=== PATIENT | male | born 1965 | race Caucasian/White ===

== ENCOUNTER 2017-12-28 16:47 | Emergency (ER) | payer OTHER ==
[~2017-12-28] VITALS: Ht 177.8 cm; Wt 104.8 kg
[2017-12-28 18:09] VITALS: BP 184/107
[2017-12-28] MEDS: IBUPROFEN 600 MG TABLET. PO ONE (18:15)
--- NOTE | 2017-12-28 19:23 | PHYS DOC ---
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 Patient reports event occurred at work today at approximately 12 PM and he went to [employer] for Work comp. but sent to ER for eval. patient reports he is having right shoulder and right knee pain. Patient reports he has been able to perform range of motion of motion and tenderness is in the front part of his shoulder. Patient reports he has small abrasion to right knee but has been able to walk unassisted with steady gait. Patient reports he took Tylenol approximately 4 hours ago with minimal relief in pain. Patient denies striking his head or having any head, neck, or back pain. Patient denies loss of consciousness. Patient denies swelling, numbness or tingling, bruising, or obvious deformity. Patient denies any incontinence of urine or bowel. Review of Systems Review of Systems Constitutional: Denies lethargy/fatigue Eyes: Denies change in visual acuity or eye pain [] HENT: Denies head pain Respiratory: Denies shortness of breath [] Cardiovascular: Denies CP/palpitations GI: Denies abdominal pain, nausea, vomiting : Denies dysuria or hematuria. Denies incontinence Musculoskeletal: Denies back/neck pain. Reports rt anterior shoulder and rt knee pain. Integument: Reports abrasion rt knee. Denies swelling/bruising/deformity Neurologic: Denies headache, focal weakness or sensory changes. Denies dizziness /lightheadedness All other systems were reviewed and found to be within normal limits, except as documented in this note. Current Medications Current Medications Current Medications Medications (Trade) Dose Ordered Sig/Cass Start Time Stop Time Status Last Admin Dose Admin Ibuprofen (Motrin) 600 mg 1X ONCE 12/28/17 18:15 12/28/17 18:16 DC 12/28/17 18:15 600 MG Allergies Allergies Allergies Coded Allergies Type Severity Reaction Last Updated Verified Penicillins Allergy Severe swelling 12/28/17 Yes Physical Exam Physical Exam Constitutional: Well developed, well nourished, no acute distress, non-toxic appearance. [] HENT: Normocephalic, atraumatic, bilateral ears normal, oropharynx moist, nose normal. [] Eyes: PERRLA, conjunctiva normal, no discharge. [] Neck: Normal range of motion, no tenderness- no midline cervical tenderness on palp- no palp. deformity/crepitus, supple, no stridor. [] Cardiovascular:Heart rate regular rhythm, no murmur [] Lungs & Thorax: Bilateral breath sounds clear to auscultation. Respirations equal and nonlabored. No chest wall tenderness or palpable deformity. Abdomen: Bowel sounds normal, soft, no tenderness, no masses, no pulsatile masses. [] Skin: Warm, dry. Small abrasion right anterior patella no ecchymosis or swelling. Mild tenderness on palpation Back: No tenderness- no midline spinal tenderness or palpable deformity. No visible injury, no CVA tenderness. [] Extremities: Pelvis stable/nontender. No cyanosis, no clubbing, ROM intact, no edema. Tender to palpation right anterior shoulder with no palpable deformity and patient has full range of motion. No visible injury on exam. Radial pulse 2 + bilat. Rt anterior knee abrasion- mild tenderness on palp. No palp. deformity/ full ROM. Steady gait from triage Neurologic: Alert and oriented X 3, normal motor function, normal sensory function, no focal deficits noted. [] Psychologic: Affect normal, judgement normal, mood normal. [] Current Patient Data Vital Signs Vital Signs Date Time Temp Pulse Resp B/P (MAP) Pulse Ox O2 Delivery O2 Flow Rate FiO2 12/28/17 18:09 97.9 92 18 184/107 (132) 95 Room Air 97.9 EKG EKG [] Radiology/Procedures Radiology/Procedures PROCEDURE: KNEE RIGHT 3V Three-view right knee radiographs 12/28/2017 CLINICAL HISTORY: Laceration to the right knee with pain. Post fall. AP, lateral and oblique digital radiographs of the right knee were obtained. No fracture or dislocation of the right knee is seen. Mild degenerative changes are seen involving all 3 compartments of the right knee. IMPRESSION: No fracture or dislocation of the right knee is seen. Electronically signed by: Brian Carballo MD (12/28/2017 8:45 PM) [facility] DICTATED and SIGNED BY: BRIAN CARBALLO MD DATE: 12/28/172043 PROCEDURE: SHOULDER 2+V RIGHT Three-view right shoulder radiographs 12/28/2017 CLINICAL HISTORY: Right shoulder pain and decreased range of motion post fall earlier today. AP internal and external rotation and transscapular digital radiographs of the right shoulder were obtained. No fracture or dislocation of the right shoulder is seen. Mild to moderate degenerative changes are seen involving the right glenohumeral joint and right AC joint. IMPRESSION: No fracture or dislocation of the right shoulder is seen. Electronically signed by: Brian Carballo MD (12/28/2017 8:44 PM) [facility] DICTATED and SIGNED BY: BRIAN CARBALLO MD DATE: 12/28/172040 Course & Med Decision Making Course & Med Decision Making Pertinent Imaging studies reviewed. (See chart for details) 1904: Discussed pt's case with Dr. Up who viewed xrays with no obvious displaced fxs viewed- discussed this with pt and need for further f/u with his Work Comp. doctor along with orthopedic doctor if sxs persist or worsen. Pt remains neuro and vascular intact in right upper/lower extremity and is able to perform range of motion of both extremities. He continues to deny head/neck pain and is in no visible distress during this re-eval. Discussed tylenol and/ or ibuprofen for pain as directed on container and ice to affected area. Discharge instructions discussed and education provided on signs and symptoms to return to ER for. Patient will be placed in sling to right upper extremity he preferred no Oscar wrap to right knee as pain is tolerable and he has been able to walk without difficulty. Dragon Disclaimer Dragon Disclaimer This electronic medical record was generated, in whole or in part, using a voice recognition dictation system. Departure Departure Impression: Primary Impression: Right shoulder injury Additional Impression: Right knee injury Disposition: HOME, SELF-CARE Condition: STABLE Referrals: UNKNOWN PCP NAME (PCP) Patient Instructions: Arm Sling Use-Brief, Knee Pain, Shoulder Pain Additional Instructions: As your injuries occurred at work you need to follow-up with your Work Comp office for re-evaluation and further care. If symptoms persist you should follow -up with orthopedic doctor or return to Emergency Department if symptoms worsen. Tylenol and/or ibuprofen as directed on container for pain control. Ice pack every 3-4 hours for 20-30 minutes at a time to affected area- avoid ice directly on skin. Sling use for pain control to right arm as directed- with removal of sling to perform light range of motion to prevent joint locking. Problem Qualifiers EDUARDO BERNARDO APRN Dec 28, 2017 19:23
--- NOTE | 2017-12-28 20:47 | RAD ---
Three-view right shoulder radiographs 12/28/2017 CLINICAL HISTORY: Right shoulder pain and decreased range of motion post fall earlier today. AP internal and external rotation and transscapular digital radiographs of the right shoulder were obtained. No fracture or dislocation of the right shoulder is seen. Mild to moderate degenerative changes are seen involving the right glenohumeral joint and right AC joint. IMPRESSION: No fracture or dislocation of the right shoulder is seen. Electronically signed by: Domenico Kurtz MD (12/28/2017 8:44 PM) [facility]
--- NOTE | 2017-12-28 20:49 | RAD ---
Three-view right knee radiographs 12/28/2017 CLINICAL HISTORY: Laceration to the right knee with pain. Post fall. AP, lateral and oblique digital radiographs of the right knee were obtained. No fracture or dislocation of the right knee is seen. Mild degenerative changes are seen involving all 3 compartments of the right knee. IMPRESSION: No fracture or dislocation of the right knee is seen. Electronically signed by: Domenico Kurtz MD (12/28/2017 8:45 PM) [facility]
== END 2017-12-28 19:45 | disposition home or self-care (01) ==
LOC: ER 16:48
DX: S49.91XA Unspecified injury of right shoulder and upper arm, initial encounter (principal); S89.91XA Unspecified injury of right lower leg, initial encounter; Z88.0 Allergy status to penicillin; W01.0XXA Fall on same level from slipping, tripping and stumbling without subsequent striking against object, initial encounter; Y93.89 Activity, other specified; Y92.69 Other specified industrial and construction area as the place of occurrence of the external cause; Y99.0 Civilian activity done for income or pay
CPT/HCPCS: 73030; 73562; 99284